=== PATIENT | female | born 1960 | race Caucasian/White ===

== ENCOUNTER 2017-01-01 10:15 | Day surgery (SDC) | payer MEDICAID ==
[~2017-01-01 10:15] MED LIST: Lactated Ringers 1,000 ML IV SCH
[2017-01-01] MEDS ORDERED: fentaNYL 100 MCG/2 ML SDV ONE (11:15)
[2017-01-01] MEDS ORDERED: Propofol 200 MG/20 ML SDV ONE (11:15)
[2017-01-01 13:44] VITALS: BP 119/75
--- NOTE | 2017-01-04 09:42 | OR ---
PREOPERATIVE DIAGNOSIS: Screening colonoscopy. POSTOPERATIVE DIAGNOSIS: Colonic polyps x3, removed. PROCEDURE: Total flexible colonoscopy. PROCEDURE DONE: Total flexible colonoscopy with polypectomy, hot snare x3. INDICATIONS: This is a 56-year-old female, who comes in for her first recommended colonoscopic exam for screening purposes. She denies any symptomatology and she has a negative family history. TECHNIQUE: The patient was brought to the endoscopy suite, placed in left lateral decubitus position. She was sedated per RN ADVICE with propofol. The flexible video colonoscope was then passed transanally under visualization and advanced through the cecum. Examination revealed a normal ascending colon. In the transverse colon, she has 2 polyps at the 75 cm loc. They were both removed by hot snare technique and retrieved with suction. The remainder of the descending colon was unremarkable. The sigmoid colon revealed a third polyp at about 30 cm from anal verge, again removed by hot snare technique and retrieved with suction and the remainder of the rectosigmoid was normal. The scope was then withdrawn. The patient tolerated the procedure well. IMPRESSION: Colonic polyps x3, removed. PLAN: She will be sent a letter with pathology report. I felt that she should continue with colonic surveillance at this point every 5 years hereafter. SCM: 01/01/2017 12:31:47 MODL: 01/01/2017 20:31:00 /[id number]
--- NOTE | 2017-01-25 08:18 | LETTER ---
01/22/2017 RE: MIGDALIA THOMAS : 1960 Dear Migdalia: The polyps removed from your colon were benign tubular adenomas. These are considered precancerous type polyps, and because of this finding, I feel that you should have colon examinations every 5 years hereafter to make sure you are not forming any new polyps. If have any question regarding this, feel free to call. Respectfully,
== END 2017-01-01 13:20 | disposition home or self-care (01) ==
LOC: VM.SDS 10:15
PROVIDERS: ATTEND Surgery
DX: Z12.11 Encounter for screening for malignant neoplasm of colon (principal); D12.6 Benign neoplasm of colon, unspecified; Z90.710 Acquired absence of both cervix and uterus; Z98.890 Other specified postprocedural states; Z79.899 Other long term (current) drug therapy; E78.5 Hyperlipidemia, unspecified; F32.9 Major depressive disorder, single episode, unspecified
CPT/HCPCS: 45385; J2704; J3010; J7120

== ENCOUNTER 2025-07-11 14:27 | Inpatient (IN) | payer MEDICARE ==
[2025-07-11] MEDS ORDERED: Ondansetron 4 MG Tab.DIS PO PRN (18:12)
[2025-07-11] MEDS ORDERED: Ondansetron 4 MG/2 ML SDV IV PRN (18:12)
[2025-07-12] MEDS: Pantoprazole 20 MG Tab, Delayed Release PO SCH (06:07)
[2025-07-16 07:01] LABS: BLOOD UREA NITROGEN,BUN 11.0 mg/dL (7-18); CARBON DIOXIDE,CO2 26.0 mmol/L (21-32); CHLORIDE,CL 104.0 mmol/L (98-107); CREATININE 0.6 mg/dL (0.55-1.02); EST CRCL DRUG DOSING (CG) 84.11 mL/min; ESTIMATED GFR 100.0 mL/min (>=60); GLUCOSE RANDOM 104.0 mg/dL (70-99); POTASSIUM,K 4.1 mmol/L (3.5-5.1); SODIUM,NA 138.0 mmol/L (136-145)
[2025-07-16 08:14] LABS: BASOPHILS ABSOLUTE AUTO 0.1 x10^3/uL (0.0-0.2); BASOPHILS PERCENT AUTO 0.8 % (0.2-1.2); EOSINOPHILS ABSOLUTE AUTO 0.4 x10^3/uL (0.0-0.5); EOSINOPHILS PERCENT AUTO 4.0 % (0.0-4.0); IMMATURE GRAN ABSOLUTE AUTO 0.04 x10^3/uL (0.00-0.07); IMMATURE GRAN PERCENT AUTO 0.40 % (0.00-0.43); LYMPHOCYTES ABSOLUTE AUTO 1.0 x10^3/uL (1.0-4.8); LYMPHOCYTES PERCENT AUTO 11.1 % (25.0-50.0); MONOCYTES ABSOLUTE AUTO 1.0 x10^3/uL (0.0-0.8); MONOCYTES PERCENT AUTO 11.0 % (2.0-11.0); NEUTROPHILS ABSOLUTE AUTO 6.7 x10^3/uL (1.8-7.7); NEUTROPHILS PERCENT AUTO 72.7 % (50.0-80.0); PLATELET COUNT,PLT 331 x10^3/uL (130-400); RED BLOOD CELL COUNT 2.60 x10^6/uL (4.00-5.50); WHITE BLOOD CELL COUNT,WBC 9.3 x10^3/uL (4.0-10.0)
[2025-07-16 15:15] VITALS: BP 119/61; PULSE 99
== END 2025-07-16 13:00 | disposition home or self-care (01) | DRG 948 ==
LOC: VM.MS 15:19
PROVIDERS: ADMIT Internal Medicine; ATTEND Nurse Practitioner Family
DX: R53.81 Other malaise (principal); N39.0 Urinary tract infection, site not specified; C7A.8 Other malignant neuroendocrine tumors; J30.9 Allergic rhinitis, unspecified; E78.00 Pure hypercholesterolemia, unspecified; K21.9 Gastro-esophageal reflux disease without esophagitis; M19.90 Unspecified osteoarthritis, unspecified site; E83.42 Hypomagnesemia; E78.5 Hyperlipidemia, unspecified; E87.6 Hypokalemia; G43.909 Migraine, unspecified, not intractable, without status migrainosus; F17.200 Nicotine dependence, unspecified, uncomplicated; F32.A Depression, unspecified; D64.9 Anemia, unspecified; Z98.49 Cataract extraction status, unspecified eye; Z98.890 Other specified postprocedural states; Z79.899 Other long term (current) drug therapy; Z90.710 Acquired absence of both cervix and uterus; Z90.49 Acquired absence of other specified parts of digestive tract
CPT/HCPCS: 36415; 80048; 83735; 85025; 97110-GO; 97110-GP; 97116-GP; 97161-GP; 97165-GO; 97535-GO; A9270-GY; J1650